=== PATIENT | male | born 2000 ===

== ENCOUNTER 2020-10-29 00:21 | Emergency (ER) | payer OTHER ==
[2020-10-29 01:44] LABS: Bilirubin,Urine NEG (Negative); Blood,Urine LG (Negative); Color,Urine Red (Yellow); Urobilinogen,Urine < 2.0 mg/dL (<2.0)
[2020-10-29 01:49] LABS: Protein,Urine >2000 mg dL mg/dL (Negative); RBC,Urine > 182.0 /HPF (0.0-6.0); WBC,Urine > 182.0 /HPF (0.0-6.0)
--- NOTE | 2020-10-29 03:13 | Emergency Department Report ---
ED General Adult HPI - General Chief complaint: Urogenital-Male Stated complaint: BLOOD IN URINE PUI?: No Time Seen by Provider: 10/29/20 02:54 Source: patient, RN notes reviewed Mode of arrival: Ambulatory Limitations: No Limitations - History of Present Illness Initial comments: The patient was evaluated in the emergency department for symptoms described in the history of present illness. He/she was evaluated in the context of the global COVID-19 pandemic, which necessitated consideration that the patient might be at risk for infection with the virus that causes COVID-19. Institutional protocols and algorithms that pertain to the evaluation of patients at risk for COVID-19 are in a state of rapid change based on info rmation released by regulatory bodies including the CDC and federal and state organizations. These policies and algorithms were followed during the patient's care in the emergency department. Please note that these policies, procedures and recommendations changed on a rapid basis. Patient is a 19-year-old male, who is not known to myself, who denies chronic medical conditions. He presents to the ER today with a complaint of essentially painless hematuria. This started at 1130 yesterday evening. It is currently 340 9 in the morning. He states that he had resolved left lower quadrant abdominal pain. He endorses testicular pressure but no pain. He denies dysuria. He denies headache, neck pain, chest pain, he has no abdominal pain at this time, denies hematemesis, bright red blood per rectum, tobacco consumption, travel to [place], [place], and exposure to blue aniline diet. No muscular pain or heavy lifting. Reports that his urine is dark red. Denies [employer] colored urine. -: Sudden Consistency: constant Improves with: none Worsens with: none Associated Symptoms: denies other symptoms - Related Data Allergies Allergy/AdvReac Type Severity Reaction Status Date / Time No Known Allergies Allergy Unverified 10/29/20 01:27 ED Review of Systems ROS: Stated complaint: BLOOD IN URINE Other details as noted in HPI Comment: All other systems reviewed and negative Gastrointestinal: abdominal pain (Initially in the left lower quadrant, now resolved) Genitourinary: hematuria. denies: urgency, dysuria, frequency, discharge, testicular pain ED Past Medical Hx - Past Medical History Previous Medical History?: No - Surgical History Past Surgical History?: No - Social History Smoking Status: Former Smoker Substance Use Type: Alcohol ED Physical Exam - General Limitations: No Limitations General appearance: alert, in no apparent distress - Head Head exam: Present: atraumatic, normocephalic - Eye Eye exam: Present: normal appearance, EOMI. Absent: nystagmus - ENT ENT exam: Present: normal exam, normal orophraynx, mucous membranes moist, normal external ear exam - Neck Neck exam: Present: normal inspection, full ROM. Absent: tenderness, meningismus - Respiratory Respiratory exam: Present: normal lung sounds bilaterally. Absent: respiratory distress, wheezes, rales, rhonchi, stridor, decreased breath sounds - Cardiovascular Cardiovascular Exam: Present: regular rate, normal rhythm, normal heart sounds. Absent: bradycardia, tachycardia, irregular rhythm, systolic murmur, diastolic murmur, rubs, gallop - GI/Abdominal GI/Abdominal exam: Present: soft, normal bowel sounds. Absent: distended, tenderness, guarding, rebound, rigid, pulsatile mass - Rectal Rectal exam: Present: deferred - exam: Present: normal inspection. Absent: testicular tenderness External exam: Present: normal external exam, other (There is normal testicular lie. There is normal cremasteric reflex. There is no testicular tenderness. There is no testicular swelling. Chaperoned by nurse Jazmine Justin) - Extremities Exam Extremities exam: Present: normal inspection, full ROM, normal capillary refill, other (2+ pulses noted in the bilateral upper and lower extremities. There is no palpable cord. negative Homans sign. Muscular compartments are soft. The pelvis is stable.). Absent: pedal edema, calf tenderness - Back Exam Back exam: Present: normal inspection, full ROM. Absent: tenderness, CVA tenderness (R), CVA tenderness (L), paraspinal tenderness, vertebral tenderness - Neurological Exam Neurological exam: Present: alert, oriented X3, normal gait, other (No facial droop. Tongue midline. Extraocular movements intact bilaterally. Facial sensation intact to light touch in V1, V2, V3 distribution bilaterally. 5 and a 5 strength in 4 extremities. Sensation intact to light touch in 4 extremities.). Absent: motor sensory deficit - Psychiatric Psychiatric exam: Present: normal affect, normal mood - Skin Skin exam: Present: warm, dry, intact, normal color. Absent: rash ED Course Vital Signs 12/02/20 12/02/20 00:44 02:50 Temperature 98.6 F 99.2 F Pulse Rate 76 80 Respiratory 16 18 Rate Blood Pressure 130/67 Blood Pressure 140/57 [Left] O2 Sat by Pulse 100 98 Oximetry - Reevaluation(s) Reevaluation #1: 10/29/20 03:51 Differential diagnosis, including but not limited to: Renal colic, hemorrhagic cystitis, genitourinary malignancy Assessment and plan: 19-year-old gentleman with gross hematuria, resolved left lower quadrant pain, no testicular pain, tenderness, or irritative urinary symptoms. Check laboratory studies, noncontrast CT scan of the abdomen pelvis, reassess. Discussed plan of care with the patient, who verbalized understanding, and who is amenable to this plan of care. Reevaluation #2: 10/29/20 05:[address] scan of the abdomen pelvis negative for acute pathology. Patient endorsing no pain at this time. Suitable to follow-up with outpatient urology to complete work-up ED Medical Decision Making - Lab Data Result diagrams: 10/29/20 03:28 10/29/20 03:28 Vital Signs 10/29/20 10/29/20 00:44 02:50 Temperature 98.6 F 99.2 F Pulse Rate 76 80 Respiratory 16 18 Rate Blood Pressure 130/67 Blood Pressure 140/57 [Left] O2 Sat by Pulse 100 98 Oximetry Lab Results 10/29/20 10/29/20 Range/Units 03:28 Unknown WBC 10.8 (4.5-11.0) K/mm3 RBC 4.76 (3.65-5.03) M/mm3 Hgb 14.9 (11.8-15.2) gm/dl Hct 42.2 (35.5-45.6) % MCV 89 (84-94) fl MCH 31 (28-32) pg MCHC 35 H (32-34) % RDW 12.6 L (13.2-15.2) % Plt Count 190 (140-440) K/mm3 Urine Color Red (Yellow) Urine Turbidity Cloudy (Clear) Urine pH 6.0 (5.0-7.0) Ur Specific [place] 1.019 (1.003-1.030) Urine Protein >2000 mg dl (Negative) mg/dL Urine Glucose (UA) Neg (Negative) mg/dL Urine Ketones Neg (Negative) mg/dL Urine Blood Lg (Negative) Urine Nitrite Neg (Negative) Urine Bilirubin Neg (Negative) Urine Urobilinogen < 2.0 (<2.0) mg/dL Ur Leukocyte Esterase Mod (Negative) Urine WBC (Auto) > 182.0 H (0.0-6.0) /HPF Urine RBC (Auto) > 182.0 (0.0-6.0) /HPF Urine WBC Clumps 3+ /HPF Urine Yeast (Budding) 3+ /HPF - Radiology Data Radiology results: report reviewed, image reviewed Print Report Referring Physician: ELIZABETH DUNLAP Patient Name: AVELINO DURÁN Date of : 2000 Sex: Male Report Date: 2020-10-29 Report Status: [place] [address] Cat Scan Report Signed Patient: AVELINO DURNÁ MR#: [id number] : 2000 Acct:[id number] Age/Sex: 19 / M ADM Date: 10/29/20 Loc: ED Attending Dr: Ordering Physician: ELIZABETH DUNLAP MD Date of Service: 10/29/20 Procedure(s): CT abdomen pelvis wo con Accession Number(s): [id number] cc: ELIZABETH DUNLAP MD CT ABDOMEN AND PELVIS WITHOUT CONTRAST HISTORY: Gross Hematuria, resloved L.L.Q. abdominal pain. COMPARISON: None. TECHNIQUE: CT images of the abdomen and pelvis were obtained without administration of intravenous contrast. All CT scans at this location are performed using CT dose reduction for ALARA by means of automated exposure control. FINDINGS: Lungs/bones: Lung bases are clear. No acute osseous abnormality identified. Abdomen/pelvis: The liver, gallbladder, spleen, pancreas, adrenals, kidneys, and proximal GI tract appear unremarkable. The urinary bladder, prostate, and colon appear unremarkable with no pelvic free fluid. The appendix is normal. IMPRESSION: 1. Unremarkable examination. Signer Name: González Hoyt MD Signed: 10/29/2020 5:10 AM Workstation Name: [id number] Transcribed By: SHIRA Dictated By: González Hoyt MD Electronically Authenticated By: González Hoyt MD Signed Date/Time: 10/29/20509 DD/ 0509 TD/TT: Critical care attestation.: If time is entered above; I have spent that time in minutes in the direct care of this critically ill patient, excluding procedure time. ED Disposition Clinical Impression: Hematuria, History of abdominal pain Disposition: - TO HOME OR SELFCARE Is pt being admited?: No Does the pt Need Aspirin: No Condition: Stable Instructions: Hematuria, Adult Additional Instructions: Please follow-up with a urologist within the next 2 weeks. It is very important to follow-up with an outpatient urologist to have further outpatient work-up to exclude cancer, tumor, malignancy. Please drink 6 cups of water per day indefinitely. Patient may take [id number] Tylenol, ibuprofen, as needed for pain, if he develops pain. Please return to the emergency room right away with new pain, worsened pain, migration of pain, projectile vomiting, change in mental status, confusion, inability to tolerate liquid feeds, new, worsened or different symptoms not present on the initial emergency room evaluation Referrals: [facility] [Provider Group] - 3-5 Days Forms: Work/School Release Form(ED)
[2020-10-29 03:50] LABS: Hematocrit 42.2 % (35.5-45.6); Hemoglobin 14.9 gm/dl (11.8-15.2); Mean Corpuscular HGB Conc 35 % (32-34); Mean Corpuscular Volume 89 fl (84-94); Platelet Count 190 K/mm3 (140-440); Red Blood Count 4.76 M/mm3 (3.65-5.03); Red Cell Distribution Width 12.6 % (13.2-15.2)
[2020-10-29 03:59] LABS: INR 0.95 (0.87-1.13)
[2020-10-29 04:03] LABS: Alanine Aminotransferase 17 units/L (7-56); Albumin 4.7 g/dL (3.9-5); BUN/Creatinine Ratio 25; Blood Urea Nitrogen 20 mg/dL (9-20); Hemolysis Index 7
--- NOTE | 2020-10-29 05:15 | Cat Scan Report ---
CT ABDOMEN AND PELVIS WITHOUT CONTRAST HISTORY: Gross Hematuria, resloved L.L.Q. abdominal pain. COMPARISON: None. TECHNIQUE: CT images of the abdomen and pelvis were obtained without administration of intravenous co ntrast. All CT scans at this location are performed using CT dose reduction for ALARA by means of au tomated exposure control. FINDINGS: Lungs/bones: Lung bases are clear. No acute osseous abnormality identified. Abdomen/pelvis: The liver, gallbladder, spleen, pancreas, adrenals, kidneys, and proximal GI tract a ppear unremarkable. The urinary bladder, prostate, and colon appear unremarkable with no pelvic free fluid. The appendix is normal. IMPRESSION: 1. Unremarkable examination. Signer Name: González Hoyt MD Signed: 10/29/2020 5:10 AM Workstation Name: [id number]
[2020-10-29 05:30] VITALS: BP 122/66
== END 2020-10-29 05:35 | disposition home or self-care (01) ==
LOC: ED 00:21
DX: R31.9 Hematuria, unspecified (principal); Z87.891 Personal history of nicotine dependence; Z87.898 Personal history of other specified conditions
CPT/HCPCS: 36415; 74176; 80053; 81001; 82550; 85027; 85610